=== PATIENT | female | born 1965 | race Caucasian/White ===

== ENCOUNTER → 2016-10-08 | Outpatient (CLI) | payer BC ==
--- NOTE | 2016-10-08 10:16 | DIAGNOSTIC IMAGING REPORT ---
CHEST 2 VIEWS ROUTINE CLINICAL HISTORY: R05 [id number] dyspnea COMPARISON STUDY: 08/22/2015 FINDINGS: Interval development of a small right effusion. Possible small parenchymal infiltrate right base. Lungs otherwise appear clear. IMPRESSION: Interval development of a small right basilar parenchymal infiltrate combine with a small right effusion. Electronically signed by: Jaxon Siddiqi M.D. 10/08/2016 10:14 AM Dictated Date/Time: 10/08/2016 10:13 AM
== END | disposition home or self-care (01) ==
LOC: C.RAD1850 09:53
PROVIDERS: ATTEND Physician Assistant Medical
DX: R05 Cough (principal)

== ENCOUNTER → 2016-10-12 | Outpatient (CLI) | payer BC ==
--- NOTE | 2016-10-12 15:38 | DIAGNOSTIC IMAGING REPORT ---
CHEST 2 VIEWS ROUTINE CLINICAL HISTORY: PNEUMONIA dyspnea COMPARISON STUDY: 10/08/2016 FINDINGS: Unchanging segmental atelectasis/infiltrative change right base. Lungs otherwise are clear. Diaphragms are smooth. Trace pleural fluid right lateral gastric angle unchanged. IMPRESSION: Unchanging parenchymal infiltrate/subsegmental atelectatic change right base. Small right effusion unchanged Electronically signed by: Jaxon Siddiqi M.D. 10/12/2016 3:36 PM Dictated Date/Time: 10/12/2016 3:34 PM
== END | disposition home or self-care (01) ==
LOC: C.RAD1850 15:19
PROVIDERS: ATTEND Physician Assistant Medical
DX: J18.9 Pneumonia, unspecified organism (principal)

== ENCOUNTER → 2017-01-04 | Outpatient (CLI) | payer BC | END | disposition home or self-care (01) | LOC: C.PAPS 15:42 | PROVIDERS: ATTEND Obstetrics & Gynecology | DX: Z01.419 Encounter for gynecological examination (general) (routine) without abnormal findings (principal) ==